=== PATIENT | male | born 1945 | race African-American/Black ===

== ENCOUNTER 2017-12-07 02:55 | Inpatient (IN) | payer OTHER ==
[~2017-12-07] VITALS: Ht 177.8 cm; Wt 117.5 kg
[2017-12-07 08:38] VITALS: BP 143/74; PULSE 95; RESP 18; TEMP 98.1; O2SAT 94
[2017-12-07 08:41] VITALS: BP 138/63; PULSE 90; RESP 18; O2SAT 96
[2017-12-07] MEDS ORDERED: NALOXONE HCL 0.4 MG/ML AMP IV PUSH PRN (09:00)
[2017-12-07] MEDS ORDERED: SODIUM CHLORIDE 0.9% FLUSH 10 ML FLUSH IV FLUSH PRN (09:00)
[2017-12-07] MEDS ORDERED: ONDANSETRON HCL 4 MG/2 ML VIAL IVP PRN (09:00)
[2017-12-07] MEDS: SODIUM CHLORIDE 0.9% FLUSH 10 ML FLUSH IV FLUSH SCH ×2 (09:00→21:00)
--- NOTE | 2017-12-07 09:20 | HHI.HP ---
HPI Service CP Hospitalists Primary Care Physician Non-Staff Admission Diagnosis SBO Chief Complaint: Nausea/vomitting Travel History International Travel<30 Days: No Contact w/Intl Traveler <30 Da: No Traveled to Known Affected Are: No History of Present Illness This is a 72 year old male patient with a past medical history which includes prior small bowel obstruction 3 in latest June 2017, diabetes mellitus type 2 and hyperlipidemia. Patient reports he has a touch of diabetes and perhaps high cholesterol but he does not take his prescribed medications. Patient reports he has had small bowel obstruction 3 times in the past with the latest being June 2017. Patient denies any prior abdominal surgeries. Patient reports yesterday morning he had a bowel movement which was not as large as his normal bowel movements. Patient reports yesterday evening he vomited undigested food several hours after his meal. Patient had associated abdominal bloating, distention and discomfort. Patient seen at [facility]. CT abdomen pelvis revealed abnormal appearance to the proximal and mid small bowel with moderate dilation. No distal dilation dilated small bowel. These findings suggest bowel obstruction. 1.6 cm bladder stone. Patient currently has NG tube in place reports he is starting to feel better. Patient in fact reports he passed flatus approximately 1 hour ago and feels as though he may have a bowel movements noon. Patient denies fevers chills shortness of breath chest pain. Review of Systems Constitutional: DENIES: Fatigue, Fever, Chills Respiratory: DENIES: Cough, Sputum production, Shortness of breath Cardiovascular: DENIES: Chest pain, Dyspnea on Exertion, Lower Extremity Edema Gastrointestinal: COMPLAINS OF: Abdominal pain, Constipation, Nausea, Vomiting Neurologic: DENIES: Abnormal gait, Headache, Localized weakness Psychiatric: DENIES: Anxiety, Confusion, Depression Past Family Social History Past Medical History prior small bowel obstruction 3 in latest June 2017, diabetes mellitus type 2 and hyperlipidemia Past Surgical History Denies prior surgical history Reported Medications Reports he does not take any medications at home. Reports he is supposed to take a diabetic medication and a cholesterol medication Allergies: Coded Allergies: No Known Allergies (Verified Allergy, Unknown, 12/07/17) Family History Reviewed and noncontributory Social History lives at home with his Patient had a prior smoking history of 50 years but reports uses vapor at this time History of heavy EtOH use approximately 20 years ago he reports he'll have a bryson occasionally Denies illicit drug use Physical Exam Vital Signs Vital Signs Date Time Temp Pulse Resp B/P (MAP) Pulse Ox O2 Delivery O2 Flow Rate FiO2 12/07/17 08:42 18 12/07/17 08:41 90 18 138/63 (88) 96 Room Air 12/07/17 08:38 98.1 95 18 143/74 (97) 94 Physical Exam GENERAL: This is a well-nourished, well-developed patient, in no apparent distress. SKIN: No rashes, ecchymoses or lesions. Cool and dry. HEAD: Atraumatic. Normocephalic. No temporal or scalp tenderness. EYES: Extraocular motions intact. No scleral icterus. No injection or drainage. CARDIOVASCULAR: Regular rate and rhythm RESPIRATORY: Clear to auscultation. Breath sounds equal bilaterally. GASTROINTESTINAL: Abdomen soft, non-tender, distended. Positive bowel sounds 4 quadrants MUSCULOSKELETAL: Extremities without clubbing, cyanosis, or edema. No joint tenderness, effusion, or edema noted. No calf tenderness. Negative Homans sign bilaterally. NEUROLOGICAL: Awake and alert. No focal deficits noted. Motor and sensory grossly within normal limits. Five out of 5 muscle strength in all muscle groups. Normal speech. Caprini VTE Risk Assessment Caprini VTE Risk Assessment: No/Low Risk (score <= 1) Caprini Risk Assessment Model Point Value = 1 Point Value = 2 Point Value = 3 Point Value = 5 Age 41-60 Minor surgery BMI > 25 kg/m2 Swollen legs Varicose veins or History of unexplained or recurrent spontaneous Oral contraceptives or hormone replacement Sepsis (< 1 month) Serious lung disease, including pneumonia (< 1 month) Abnormal pulmonary function Acute myocardial infarction Congestive heart failure (< 1 month) History of inflammatory bowel disease Medical patient at bed rest Age 61-74 Arthroscopic surgery Major open surgery (> 45 min) Laparoscopic surgery (> 45 min) Malignancy Confined to bed (> 72 hours) Immobilizing plaster cast Central venous access Age >= 75 History of VTE Family history of VTE Factor V Leiden Prothrombin [id number] Lupus anticoagulant Anticardiolipin antibodies Elevated serum homocysteine Heparin-induced thrombocytopenia Other congenital or acquired thrombophilia Stroke (< 1 month) Elective arthroplasty Hip, pelvis, or leg fracture Acute spinal cord injury (< 1 month) Prophylaxis Regimen Total Risk Factor Score Risk Level Prophylaxis Regimen 0-1 Low Early ambulation 2 Moderate Order ONE of the following: *Sequential Compression Device (SCD) *Heparin 5000 units SQ BID 3-4 Higher Order ONE of the following medications: *Heparin 5000 units SQ TID *Enoxaparin/Lovenox 40 mg SQ daily (WT < 150 kg, CrCl > 30 mL/min) *Enoxaparin/Lovenox 30 mg SQ daily (WT < 150 kg, CrCl > 10-29 mL/min) *Enoxaparin/Lovenox 30 mg SQ BID (WT < 150 kg, CrCl > 30 mL/min) AND/OR *Sequential Compression Device (SCD) 5 or more Highest Order ONE of the following medications: *Heparin 5000 units SQ TID (Preferred with Epidurals) *Enoxaparin/Lovenox 40 mg SQ daily (WT < 150 kg, CrCl > 30 mL/min) *Enoxaparin/Lovenox 30 mg SQ daily (WT < 150 kg, CrCl > 10-29 mL/min) *Enoxaparin/Lovenox 30 mg SQ BID (WT < 150 kg, CrCl > 30 mL/min) AND *Sequential Compression Device (SCD) Assessment and Plan Problem List: (1) SBO (small bowel obstruction) ICD Codes: K56.609 - Unspecified intestinal obstruction, unspecified as to partial versus complete obstruction Plan: SBO Patient reports yesterday evening he vomited undigested food several hours after his meal. Patient had associated abdominal bloating, distention and discomfort. Patient seen at [facility]. - CT abdomen pelvis revealed abnormal appearance to the proximal and mid small bowel with moderate dilation. No distal dilation dilated small bowel. These findings suggest bowel obstruction. 1.6 cm bladder stone. - NG tube low intermittent wall suction - Nothing by mouth - IV fluids for hydration - KUB in a.m. - Supportive care Diabetes mellitus Patient reports he is noncompliant with prescribed medications Check hemoglobin A1c Accu-Cheks before meals and at bedtime with sliding scale insulin coverage Recommend patient follow up with PCP for further management of diabetes after discharge Hyperlipidemia Patient also reports he is noncompliant with his cholesterol medication Recommend patient follow up with PCP for further management of cholesterol after discharge DVT prophylaxis with SCDs (2) Diabetes ICD Codes: E11.9 - Type 2 diabetes mellitus without complications (3) Hyperlipidemia ICD Codes: E78.5 - Hyperlipidemia, unspecified Assessment and Plan Patient examined. Assessment and plan formulated with Alicja Clay PA-C. I agree with the above. sbo on CT ngt. passing flatus/stool now. sbft pending and gen surg to dc ngt and advance diet if sbft not obstructing hopefully dc tomorrow. Physician Certification 2 Midnight Certification Type: Admission for Inpatient Services Order for Inpatient Services The services are ordered in accordance with Medicare regulations or non- Medicare payer requirements, as applicable. In the case of services not specified as inpatient-only, they are appropriately provided as inpatient services in accordance with the 2-midnight benchmark. Estimated LOS (days): 2 days is the estimated time the patient will need to remain in the hospital, assuming treatment plan goals are met and no additional complications. Post-Hospital Plan: Home Alicja Clay Dec 07, 2017 09:20 Adrian Yin MD Dec 07, 2017 19:56
[2017-12-07] MEDS ORDERED: GLUCAGON 1 MG/ML VIAL OTHER PRN (09:30)
[2017-12-07] MEDS ORDERED: DEXTROSE 50% IN WATER 50 ML VIAL(D50) IV PUSH PRN (09:30)
[2017-12-07] MEDS: SODIUM CHLOR 0.9% 1000 ML INJ 1,000 ML IV SCH ×2 (09:42→20:46)
[2017-12-07] MEDS: INSULIN ASPART SUPPLEMENTAL SCALE SQ SCH ×3 (12:00→21:00)
[2017-12-07 12:11] VITALS: BP 141/67; PULSE 92; RESP 18; O2SAT 99
--- NOTE | 2017-12-07 13:30 | PD.CONS ---
HPI Service General Surgery Consult Requested By Dr. Yin Reason for Consult SBO Primary Care Physician Non-Staff History of Present Illness 72 yo M presents with bloating followed by emesis starting yesterday afternoon. He had a diet of fruits and vegetable for breakfast and lunch and subsequently was not hungry. He normally has bowel movts daily but did not last night. Here in the ED he has had multiple bowel movts. He has had no previous abdominal surgeries. However, he has had similar symptoms requiring hospitalization last June and also about two years ago. Both resolved conservatively. He had a colonoscopy about three years ago which he reports was normal. Review of Systems Constitutional: DENIES: Fever, Chills Eyes: DENIES: Eye inflammation, Eye pain Respiratory: DENIES: Cough, Shortness of breath Cardiovascular: DENIES: Chest pain, Palpitations Gastrointestinal: COMPLAINS OF: Abdominal pain, Nausea, Vomiting Musculoskeletal: DENIES: Muscle aches, Stiffness Integumentary: DENIES: Pruritus, Rash Neurologic: DENIES: Headache, Paresthesias Past Family Social History Past Medical History None Past Surgical History None Reported Medications None Allergies: Coded Allergies: No Known Allergies (Verified Allergy, Unknown, 12/07/17) Active Ordered Medications Current Medications Medications (Trade) Dose Ordered Sig/Vanessa Route Start Time Stop Time Status Last Admin Sodium Chloride 1,000 ml @ 84 mls/hr [id number] IV 12/07/17 08:51 12/07/17 09:42 (NS Flush) 2 ml UNSCH PRN IV FLUSH 12/07/17 09:00 (NS Flush) 2 ml BID IV FLUSH 12/07/17 09:00 (Zofran Inj) 4 mg Q6H PRN IVP 12/07/17 09:00 (Narcan Inj) 0.4 mg UNSCH PRN IV PUSH 12/07/17 09:00 (D50w (Vial) Inj) 50 ml UNSCH PRN IV PUSH 12/07/17 09:30 (Glucagon Inj) 1 mg UNSCH PRN OTHER 12/07/17 09:30 (NovoLOG SUPPLEMENTAL SCALE) 1 ACHS SLIDING SCALE SQ 12/07/17 12:00 Family History Noncontributory Social History No ETOH, tobacco, or drug use. He is from [place]. Physical Exam Vital Signs Vital Signs Date Time Temp Pulse Resp B/P (MAP) Pulse Ox O2 Delivery O2 Flow Rate FiO2 12/07/17 12:11 92 18 141/67 (91) 99 Room Air 12/07/17 08:42 18 12/07/17 08:41 90 18 138/63 (88) 96 Room Air 12/07/17 08:38 98.1 95 18 143/74 (97) 94 Physical Exam GENERAL: Awake and alert. No acute distress. Cooperative. HEAD: Normocephalic. Atraumatic. EYES: Pupils equal round and reactive to light bilaterally. No scleral icterus. ENT: Moist oral mucosa. NECK: Trachea midline. CHEST: Lungs clear to auscultation bilaterally with no wheezing or rhonchi. No respiratory distress. CARDIOVASCULAR: Regular rate and rhythm. ABDOMEN: mild distention, mild LLQ ttp, NG clamped at this time. EXTREMITIES: No cyanosis or edema. SKIN: Warm, dry, nonjaundiced. Laboratory Reviewed- see [facility] visit Imaging Imaging reviewed by me. See [facility] visit for report. Assessment and Plan Assessment and Plan 72 yo M with small bowel obstruction which seems to be resolving as he has had multiple bowel movts. This has happened multiple times in the past. Will check SBFT and if contrast passes then NGT can be removed and diet started. Nestor Watts MD Dec 07, 2017 13:30
[2017-12-07] MEDS ORDERED: DIATRIZOATE MEGLUM/DIATRIZOATE SOD 120 ML BTL (for RAD DIAG) NG ONE (14:15)
[2017-12-07 17:27] VITALS: BP 137/89; PULSE 86; RESP 20; O2SAT 95
--- NOTE | 2017-12-07 17:37 | RADRPT ---
EXAM DATE/TIME: 12/07/2017 14:07 [facility] COMPARISON: No previous studies available for comparison. INDICATIONS : Nausea, vomiting and abdominal distention, evaluate for small bowel obstruction. FLUORO TIME: 1.2 minutes IMAGE COUNT: 29 CONTRAST: [facility] IMAGING TIME(S): 15 min, 30 min, 45 min, 1 hr, 1.5 hrs2 hrs, 2.5 hrs. MEDICAL HISTORY : None. SURGICAL HISTORY : None. ENCOUNTER: Initial ACUITY: 1 day PAIN SCORE: 0/10 LOCATION: Bilateral small bowel. FINDINGS: Preliminary film is unremarkable. The stomach is grossly unremarkable. Examination of the small bowel demonstrates some mildly dilated proximal small bowel loops in the lef t midabdomen. The more distal loops appear to be within normal limits for size. There does not appear to be a mechanical obstruction since there is contrast in the colon by 3 hours. The terminal ileum a ppears to be grossly unremarkable.. CONCLUSION: 1. There are some mildly dilated proximal loops of small bowel. The more distal loops do not appear t o be significantly dilated and there is a normal transit time through the small bowel into the colon by 3 hours. No significant mechanical obstruction is demonstrated. Mando Lozano MD on December 07, 2017 at 17:32 Board Certified Radiologist. This report was verified electronically.
[2017-12-07 20:00] VITALS: BP 160/80; PULSE 86; RESP 20; TEMP 98; O2SAT 95
[2017-12-08 00:20] VITALS: BP 156/76; PULSE 86; RESP 17; TEMP 97.6; O2SAT 97
[2017-12-08 05:15] VITALS: BP 147/75; PULSE 80; RESP 20; TEMP 98.2; O2SAT 97
[2017-12-08 08:14] VITALS: BP 120/60; PULSE 84; RESP 18; TEMP 98.4; O2SAT 95
[2017-12-08] MEDS: INSULIN ASPART SUPPLEMENTAL SCALE SQ SCH (08:40)
[2017-12-08] MEDS: SODIUM CHLORIDE 0.9% FLUSH 10 ML FLUSH IV FLUSH SCH (09:00)
[2017-12-08 09:17] LABS: AUTOMATED NEUTROPHIL # 2.2 TH/MM3 (1.8-7.7); EOSINOPHIL # 0.1 TH/MM3 (0-0.4); EOSINOPHIL % 2.7 % (0.0-4.0); HEMATOCRIT 46.9 % (39.0-51.0); HEMOGLOBIN 15.7 GM/DL (13.0-17.0); LYMPH % 43.4 % (9.0-44.0); LYMPHOCYTE # 2.2 TH/MM3 (1.0-4.8); MEAN CELL VOLUME 91.3 FL (80.0-100.0); MEAN CORPUSCULAR HEMOGLOBIN 30.5 PG (27.0-34.0); MEAN CORPUSCULAR HGB CONC 33.4 % (32.0-36.0); MEAN PLATELET VOLUME 8.3 FL (7.0-11.0); MONO % 10.1 % (0.0-8.0); MONOCYTE # 0.5 TH/MM3 (0-0.9); NEUT % 42.8 % (16.0-70.0); PLATELET COUNT 192 TH/MM3 (150-450); RED BLOOD COUNT 5.14 MIL/MM3 (4.50-5.90); RED CELL DISTRIBUTION WIDTH 13.7 % (11.6-17.2); WHITE BLOOD COUNT 5.1 TH/MM3 (4.0-11.0)
[2017-12-08 09:49] LABS: ALBUMIN 3.8 GM/DL (3.4-5.0); AST (GOT) 23 U/L (15-37); BICARBONATE 27.9 MEQ/L (21.0-32.0); BLOOD UREA NITROGEN 17 MG/DL (7-18); CALCIUM 9.2 MG/DL (8.5-10.1); CHLORIDE 103 MEQ/L (98-107); CREATININE 1.32 MG/DL (0.60-1.30); GLOMERULAR FILTRATION RATE 65 ML/MIN (>89); GLUCOSE,RANDOM 121 MG/DL (74-106); SODIUM (NA) 139 MEQ/L (136-145)
[2017-12-08 09:51] LABS: ALT (GPT) 35 U/L (12-78)
[2017-12-08 09:53] LABS: ALKALINE PHOSPHATASE 87 U/L (45-117); TOTAL BILIRUBIN ADULT 1.8 MG/DL (0.2-1.0)
--- NOTE | 2017-12-08 10:37 | HHI.PR ---
Subjective Remarks pt asking to go home. passing gas/stool. tolerated diet. abdomen soft. Objective Vitals heart reg luing cta abd s/nt/nabs ext no edema Vital Signs Date Time Temp Pulse Resp B/P (MAP) Pulse Ox O2 Delivery O2 Flow Rate FiO2 12/08/17 08:14 98.4 84 18 120/60 (80) 95 12/08/17 05:15 98.2 80 20 147/75 (99) 97 12/08/17 00:20 97.6 86 17 156/76 (102) 97 12/07/17 20:00 98.0 86 20 160/80 (106) 95 12/07/17 18:09 12/07/17 17:27 86 20 137/89 (105) 95 Room Air 12/07/17 12:11 92 18 141/67 (91) 99 Room Air Result Diagram: 12/08/17 0901 12/08/17 0901 A/P Problem List: (1) SBO (small bowel obstruction) ICD Codes: K56.609 - Unspecified intestinal obstruction, unspecified as to partial versus complete obstruction Status: Acute Plan: SBO Patient reports yesterday evening he vomited undigested food several hours after his meal. Patient had associated abdominal bloating, distention and discomfort. Patient seen at [facility]. - CT abdomen pelvis revealed abnormal appearance to the proximal and mid small bowel with moderate dilation. No distal dilation dilated small bowel. These findings suggest bowel obstruction. 1.6 cm bladder stone. - sbft no obstruction now ngt out. passing stool/flatus. tolerating diet. abdomen soft with bs pt asking to go home d/c with f/u - Diabetes mellitus Patient reports he is noncompliant with prescribed medications Accu-Cheks before meals and at bedtime with sliding scale insulin coverage Recommend patient follow up with PCP for further management of diabetes after discharge Hyperlipidemia Patient also reports he is noncompliant with his cholesterol medication Recommend patient follow up with PCP for further management of cholesterol after discharge DVT prophylaxis with SCDs (2) Diabetes ICD Codes: E11.9 - Type 2 diabetes mellitus without complications (3) Hyperlipidemia ICD Codes: E78.5 - Hyperlipidemia, unspecified Adiran Yin MD Dec 08, 2017 10:37
--- NOTE | 2017-12-08 10:40 | HHI.DCPOC ---
Discharge Care Plan Diagnosis: (1) SBO (small bowel obstruction) Goals to Promote Your Health * To prevent worsening of your condition and complications * To maintain your health at the optimal level Directions to Meet Your Goals Take your medications as prescribed Follow your dietary instruction Follow activity as directed Keep your appointments as scheduled Take your immunizations and boosters as scheduled If your symptoms worsen call your PCP, if no PCP go to Urgent Care Center or Emergency Room Smoking is Dangerous to Your Health. Avoid second hand smoke Call the 24-hour hour crisis hotline for domestic abuse at Adrian Yin MD Dec 08, 2017 10:40
[2017-12-08 12:09] VITALS: BP 166/79; PULSE 60; RESP 18; TEMP 97.9; O2SAT 100
[2017-12-08 18:12] LABS: HEMOGLOBIN A1C 6.1 % (4.3-6.0)
== END 2017-12-08 13:36 | disposition home or self-care (01) | DRG 390 ==
LOC: NEDDLT 02:55 → NEDA 07:44 → N05A 18:06
PROVIDERS: ADMIT Hospitalist; ATTEND Hospitalist
DX: K56.609 Unspecified intestinal obstruction, unspecified as to partial versus complete obstruction (principal); E11.9 Type 2 diabetes mellitus without complications; E78.5 Hyperlipidemia, unspecified; N21.0 Calculus in bladder; F17.290 Nicotine dependence, other tobacco product, uncomplicated; Z91.14 Patient's other noncompliance with medication regimen
CPT/HCPCS: 74177; 74250; 80053; 81001; 82948; 83036; 83605; 83690; 84484; 85025; 85610; 85730; 96374; J2405; J7030; Q9963; Q9967